=== PATIENT | female | born 1935 | race Caucasian/White ===

== ENCOUNTER 2024-06-09 20:42 | Inpatient (IN) | payer MEDICARE, OTHER ==
[~2024-06-09] VITALS: Ht 154.9 cm; Wt 65.3 kg
[2024-06-09 21:27] LABS: *BILIRUBIN,URIN NEGATIVE (NEGATIVE); *BLOOD, URINE 2+ (NEGATIVE); *CLARITY,URINE CLEAR (CLEAR); *COLOR,URINE YELLOW (YELLOW); *KETONES,URINE NEGATIVE (NEGATIVE); *PROTEIN,URINE NEGATIVE (NEGATIVE); *UROBILINOGEN,URINE 0.2 E.U./dl (NORMAL); LEUKOCYTE ESTERASE ,URINE NEGATIVE (NEGATIVE); NITRITE, URINE NEGATIVE (NEGATIVE); PH,URINE 5.5 (5.0-8.0); UGLUCOSE NEGATIVE (NEGATIVE)
[2024-06-09 21:28] LABS: BASOPHILS # (AUTO) 0.1 K/UL (0.0-0.2); EOSINOPHILS # (AUTO) 0.2 K/uL (0.0-0.7); EOSINOPHILS % (AUTO) 2.3 % (0.0-7.0); HEMATOCRIT 39.3 % (31.2-41.9); HEMOGLOBIN 13.1 g/dL (10.9-14.3); LYMPHOCYTES # (AUTO) 2.2 K/uL (0.8-4.8); LYMPHOCYTES % (AUTO) 31.9 % (20.5-51.5); MEAN CORPUSCULAR HEMOGLOBIN 32.7 uug (24.7-32.8); MEAN CORPUSCULAR HGB CONC 33 g/dL (32.3-35.6); MEAN CORPUSCULAR VOLUME 97.8 fL (75.5-95.3); MONOCYTES # (AUTO) 0.7 K/uL (0.1-1.30); MONOCYTES % (AUTO) 10.1 % (0.0-11.0); NEUTROPHILS # (AUTO) 3.8 K/uL (1.8-8.9); NEUTROPHILS % (AUTO) 54.7 % (38.5-71.5); PLATELET COUNT (AUTO) 256 K/uL (179-408); RED BLOOD CELL COUNT(AUTO) 4.02 MIL/uL (3.63-4.92); RED CELL DISTRIBUTION WIDTH 14.6 % (12.3-17.7)
[2024-06-09 21:40] LABS: *AMPHETAMINE, URINE NEGATIVE (NEGATIVE); *BARBITURATE, URINE NEGATIVE (NEGATIVE); *BENZODIAZEPINE, URINE NEGATIVE (NEGATIVE); *CANNABINOID, URINE NEGATIVE (NEGATIVE); *COCCAINE, URINE NEGATIVE (NEGATIVE); *OPIATE, URINE NEGATIVE (NEGATIVE); *PHENCYCLIDINE SCREEN,URINE NEGATIVE (NEGATIVE); FENTANYL, URINE NEGATIVE (NEGATIVE)
[2024-06-09 21:40] LABS: CARBON DIOXIDE 28 mmol/L (21-32); CHLORIDE 106 mmol/L (98-107); CREATININE 0.8 mg/dL (0.6-1.3); GLUCOSE 104 mg/dL (74-106); POTASSIUM 3.8 mmol/L (3.5-5.1); SODIUM SERUM 141 mmol/L (136-145); UREA NITROGEN, BLOOD 22 mg/dL (7-18)
[2024-06-09 21:41] LABS: BACTERIA,URINE FEW /HPF (NONE SEEN); SQUAMOUS EPITHELIAL CELL,UR MODERATE /HPF (NONE SEEN); WBC,URINE 0-3 /HPF (0-3)
[2024-06-09 21:42] LABS: ETHANOL < 3 MG/DL (0-10)
[2024-06-09 21:46] LABS: ALANINE AMINOTRANSFERASE 15 U/L (14-59); ALBUMIN 3.3 g/dL (3.4-5.0); ALKALINE PHOSPHATASE 93 U/L (50-136); ASPARTATE AMINOTRANSFERASE 10 U/L (15-37); BILIRUBIN,DIRECT 0.1 mg/dL (0.0-0.2); BILIRUBIN,TOTAL 0.2 mg/dL (0.2-1.0)
[2024-06-09 21:50] LABS: ACETAMINOPHEN < 2.0 ug/mL (10-30)
[2024-06-09 21:53] LABS: THYROID STIMULATING HORMONE 0.726 mIU/mL (0.358-3.740)
[2024-06-09] MEDS ORDERED: MAGN400O6 PO (22:32)
[2024-06-09] MEDS ORDERED: LIDO30CR47 TP (22:32)
[2024-06-09] MEDS ORDERED: MULT-594 PO (22:32)
[2024-06-09] MEDS ORDERED: FAMO20TA8 PO (22:32)
[2024-06-09] MEDS ORDERED: MIRT7.5T10 PO (22:32)
[2024-06-09] MEDS ORDERED: NA P133E RC (22:32)
[2024-06-09] MEDS ORDERED: MAG30ORA PO (22:32)
[2024-06-09] MEDS ORDERED: LEVO200T9 PO (22:32)
[2024-06-09] MEDS ORDERED: CHOL10005 PO (22:32)
[2024-06-09] MEDS ORDERED: ACET325T53 PO (22:32)
[2024-06-09] MEDS ORDERED: BISA10SU11 RC (22:32)
[2024-06-09] MEDS ORDERED: QUET25TA PO (22:32)
[2024-06-09] MEDS ORDERED: OXCA150T13 PO (22:32)
[2024-06-09] MEDS ORDERED: MELA3CAP2 PO (22:32)
[2024-06-09] MEDS ORDERED: HYDR-4209 PO (22:32)
[2024-06-09] MEDS ORDERED: DOCU250C14 PO (22:32)
[2024-06-10] MEDS ORDERED: ZOLPIDEM 5 MG TABLET PO PRN ×2 (02:00)
[2024-06-10] MEDS ORDERED: QUETIAPINE FUMARATE 25 MG TABLET PO PRN (02:00)
[2024-06-10] MEDS ORDERED: MAGNESIUM HYDROXIDE 30 ML LIQUID UDC PO PRN (02:00)
[2024-06-10 02:01] VITALS: BP 150/71; TEMP 97.7; O2SAT 99
[2024-06-10] MEDS ORDERED: LIDOCAINE 0.5% TOP (07:55)
[2024-06-10 08:50] VITALS: BP 99/52; TEMP 98.2; O2SAT 98
[2024-06-10 15:16] VITALS: BP 97/52; TEMP 98.2; O2SAT 100
[2024-06-10 20:00] VITALS: BP 126/59; TEMP 98.4; O2SAT 95
[2024-06-10] MEDS: DIVALPROEX 125 MG TABLET.DR PO SCH (20:38)
[2024-06-10] MEDS: QUETIAPINE FUMARATE 25 MG TABLET PO SCH (20:38)
[2024-06-11 08:12] VITALS: BP 136/90; TEMP 97.6
[2024-06-11 08:26] LABS: ALANINE AMINOTRANSFERASE 18 U/L (14-59); ALBUMIN 3.2 g/dL (3.4-5.0); ALKALINE PHOSPHATASE 91 U/L (50-136); ASPARTATE AMINOTRANSFERASE 15 U/L (15-37); BILIRUBIN,TOTAL 0.6 mg/dL (0.2-1.0); CALCIUM 9.3 mg/dL (8.5-10.1); CARBON DIOXIDE 27 mmol/L (21-32); CHLORIDE 109 mmol/L (98-107); CREATININE 0.8 mg/dL (0.6-1.3); GLUCOSE 103 mg/dL (74-106); SODIUM SERUM 146 mmol/L (136-145); TOTAL PROTEIN, SERUM 6.9 g/dL (6.4-8.2); UREA NITROGEN, BLOOD 22 mg/dL (7-18)
[2024-06-11 16:00] VITALS: BP 133/58; TEMP 98.1; O2SAT 95
[2024-06-11 20:15] VITALS: BP 152/64; TEMP 98.6; O2SAT 98
[2024-06-11] MEDS: ATORVASTATIN 10 MG TABLET PO SCH (21:24)
[2024-06-11] MEDS: MIRTAZAPINE 15 MG TABLET PO SCH (21:24)
[2024-06-12 09:02] VITALS: BP 121/51; TEMP 98.1; O2SAT 98
[2024-06-12 17:44] VITALS: BP 125/60; TEMP 98.5; O2SAT 98
[2024-06-12 20:00] VITALS: BP 146/68; TEMP 97.8; O2SAT 95
[2024-06-12] MEDS: DIVALPROEX 125 MG TABLET.DR PO SCH (20:56)
[2024-06-13] MEDS: LEVOTHYROXINE SODIUM 175 MCG TABLET PO SCH (06:51)
[2024-06-13 08:27] VITALS: BP 102/52; TEMP 98.3; O2SAT 98
[2024-06-13 16:44] VITALS: BP 138/45; TEMP 98.1; O2SAT 98
[2024-06-13 19:42] VITALS: BP 148/50; TEMP 97.3; O2SAT 95
[2024-06-14 09:06] VITALS: BP 106/51; TEMP 98.4; O2SAT 97
[2024-06-14 15:08] VITALS: BP 128/56; TEMP 98.2; O2SAT 97
[2024-06-14 20:00] VITALS: BP 149/62; TEMP 98.1; O2SAT 97
[2024-06-14] MEDS: DOCUSATE SODIUM 100 MG CAPSULE PO SCH (20:23)
[2024-06-14] MEDS: QUETIAPINE FUMARATE 25 MG TABLET PO SCH (20:23)
[2024-06-15] MEDS: PANTOPRAZOLE SODIUM 40 MG TABLET.DR PO SCH (06:02)
[2024-06-15 07:44] VITALS: BP 159/59; TEMP 98; O2SAT 98
[2024-06-15] MEDS: ENSURE ENLIVE (VAN) 240 ML LIQUID PO SCH (08:57)
[2024-06-15] MEDS: MULTIVITAMINS,THERAPEUTIC TABLET PO SCH (13:58)
[2024-06-15] MEDS: CHOLECALCIFEROL 1,000 UNIT TABLET PO SCH (13:59)
[2024-06-15 15:09] VITALS: BP 140/46; TEMP 98; O2SAT 98
[2024-06-15 20:00] VITALS: BP 130/74; TEMP 98; O2SAT 98
[2024-06-15] MEDS: ZOLPIDEM 5 MG TABLET PO PRN (21:59)
[2024-06-16 07:48] LABS: CALCIUM 8.9 mg/dL (8.5-10.1); CARBON DIOXIDE 28 mmol/L (21-32); CHLORIDE 107 mmol/L (98-107); CREATININE 0.8 mg/dL (0.6-1.3); GLUCOSE 108 mg/dL (74-106); POTASSIUM 3.7 mmol/L (3.5-5.1); SODIUM SERUM 144 mmol/L (136-145); UREA NITROGEN, BLOOD 18 mg/dL (7-18)
[2024-06-16 07:49] VITALS: BP 144/62; TEMP 98; O2SAT 99
[2024-06-16] MEDS: DIVALPROEX 250 MG TABLET.DR PO SCH (13:27)
[2024-06-16] MEDS ORDERED: DIVALPROEX 125 MG TABLET.DR PO SCH (14:00)
[2024-06-16 15:53] VITALS: BP 144/56; TEMP 98; O2SAT 98
[2024-06-16 20:00] VITALS: BP 142/75; TEMP 98; O2SAT 96
[2024-06-16 22:17] LABS: VALPROIC ACID 37 ug/mL (50-100)
[2024-06-17 08:00] VITALS: BP 156/51; TEMP 98.4; O2SAT 96
[2024-06-17 15:54] VITALS: BP 106/46; TEMP 98; O2SAT 96
[2024-06-17 20:00] VITALS: BP 123/69; TEMP 98.1; O2SAT 96
[2024-06-17] MEDS: MAG HYDROX/AL HYDROX/SIMETH 30 ML LIQUID UDC PO PRN (21:50)
[2024-06-17] MEDS: ACETAMINOPHEN 325 MG TABLET PO PRN (21:50)
[2024-06-18 07:52] VITALS: BP 106/53; TEMP 98; O2SAT 98
[2024-06-18 15:18] VITALS: BP 133/55; TEMP 98.8; O2SAT 98
[2024-06-18 18:44] LABS: *BILIRUBIN,URIN NEGATIVE (NEGATIVE); *BLOOD, URINE TRACE (NEGATIVE); *CLARITY,URINE CLEAR (CLEAR); *COLOR,URINE YELLOW (YELLOW); *KETONES,URINE 1+ (NEGATIVE); *PROTEIN,URINE NEGATIVE (NEGATIVE); *UROBILINOGEN,URINE 0.2 E.U./dl (NORMAL); LEUKOCYTE ESTERASE ,URINE TRACE (NEGATIVE); NITRITE, URINE NEGATIVE (NEGATIVE); UGLUCOSE NEGATIVE (NEGATIVE)
[2024-06-18 18:52] LABS: BACTERIA,URINE FEW /HPF (NONE SEEN); RBC,URINE 0-3 /HPF (0-3); SQUAMOUS EPITHELIAL CELL,UR FEW /HPF (NONE SEEN); WBC,URINE 0-3 /HPF (0-3)
[2024-06-18 20:00] VITALS: BP 105/52; TEMP 98.5; O2SAT 95
[2024-06-19 08:48] VITALS: BP 101/52; TEMP 98.3; O2SAT 97
[2024-06-19 18:20] VITALS: BP 140/59; TEMP 98.1; O2SAT 98
[2024-06-19 20:00] VITALS: BP 137/65; TEMP 97.8; O2SAT 96
[2024-06-19] MEDS: MIRTAZAPINE 15 MG TABLET PO SCH (20:55)
[2024-06-19] MEDS: NITROFURANTOIN/NITROFURAN MAC 100 MG CAPSULE PO SCH (20:55)
[2024-06-20 09:28] VITALS: BP 113/53; TEMP 98.3; O2SAT 98
[2024-06-20 17:31] VITALS: BP 108/59; TEMP 98.1; O2SAT 98
[2024-06-20 20:08] VITALS: BP 129/63; TEMP 98; O2SAT 99
[2024-06-21 08:00] VITALS: BP 94/40; TEMP 97.8; O2SAT 97
[2024-06-21 16:00] VITALS: BP 122/77; TEMP 97.8; O2SAT 98
[2024-06-21 20:12] VITALS: BP 145/64; TEMP 97.7; O2SAT 96
[2024-06-21] MEDS ORDERED: MIRTAZAPINE 15 MG TABLET ONE (20:17)
[2024-06-22] MEDS: QUETIAPINE FUMARATE 25 MG TABLET PO PRN (01:41)
[2024-06-22 07:56] VITALS: BP 110/52; TEMP 98.4; O2SAT 98
[2024-06-22 15:10] VITALS: BP 117/66; TEMP 98; O2SAT 100
[2024-06-22 19:48] VITALS: BP 123/69; TEMP 98.1; O2SAT 98
[2024-06-22] MEDS: QUETIAPINE FUMARATE 25 MG TABLET PO SCH (20:45)
[2024-06-23 08:09] VITALS: BP 115/50; TEMP 98; O2SAT 98
[2024-06-23 16:12] VITALS: BP 121/46; TEMP 98; O2SAT 94
[2024-06-23 20:14] VITALS: BP 116/56; TEMP 98.1; O2SAT 95
[2024-06-24 09:20] VITALS: BP 129/61; TEMP 98.2; O2SAT 96
[2024-06-24 16:19] VITALS: BP 123/55; TEMP 98; O2SAT 96
[2024-06-24 19:45] VITALS: BP 140/68; TEMP 98.1; O2SAT 100
[2024-06-25 07:57] VITALS: BP 135/66; TEMP 98; O2SAT 98
[2024-06-25 15:22] VITALS: BP 110/69; TEMP 97.8; O2SAT 96
== END 2024-06-25 13:00 | DRG 885 ==
LOC: ER 20:46 → GPS 23:52
PROVIDERS: ADMIT Psychiatry & Neurology Psychiatry; ATTEND Internal Medicine
DX: F31.9 Bipolar disorder, unspecified (principal); F03.911 Unspecified dementia, unspecified severity, with agitation; F03.93 Unspecified dementia, unspecified severity, with mood disturbance; E44.1 Mild protein-calorie malnutrition; N39.0 Urinary tract infection, site not specified; F03.94 Unspecified dementia, unspecified severity, with anxiety; E87.0 Hyperosmolality and hypernatremia; D68.59 Other primary thrombophilia; E03.9 Hypothyroidism, unspecified; M15.9 Polyosteoarthritis, unspecified; Z86.16 Personal history of COVID-19; E66.9 Obesity, unspecified; Z68.26 Body mass index [BMI] 26.0-26.9, adult; Z87.440 Personal history of urinary (tract) infections; K44.9 Diaphragmatic hernia without obstruction or gangrene; K21.9 Gastro-esophageal reflux disease without esophagitis; M81.0 Age-related osteoporosis without current pathological fracture; G47.00 Insomnia, unspecified; K57.30 Diverticulosis of large intestine without perforation or abscess without bleeding; Z88.0 Allergy status to penicillin; Z91.81 History of falling; Z79.899 Other long term (current) drug therapy; E78.5 Hyperlipidemia, unspecified; Z74.09 Other reduced mobility; R79.89 Other specified abnormal findings of blood chemistry; R41.89 Other symptoms and signs involving cognitive functions and awareness
CPT/HCPCS: 36415; 80164; 83735; 84443; 85025; G0480; J3490